=== PATIENT | male | born 1950 | race Caucasian/White ===

== ENCOUNTER 2017-08-27 06:52 | Day surgery (SDC) | payer OTHER ==
[2017-08-23 15:15] VITALS: BMI 30.4
--- NOTE | 2017-08-27 10:20 | OP ---
DATE OF PROCEDURE: 08/27/2017 PROCEDURE PERFORMED: Colonoscopy. PREOPERATIVE DIAGNOSIS: Surveillance for history of colon polyps. The patient had multiple serrated adenomas, multiple serrated adenomas removed from the colon in 07/2013. One of these was a large 2. 2 cm serrated adenoma at the hepatic flexure. Followup exam was recommended for 6 months from that t daysi; however, the patient just now presents for followup. PROCEDURE IN DETAIL: Informed consent was obtained from the patient. He was sedated with total intr avenous anesthesia. The rectal exam was performed and was normal. The preparation quality was poor in the ascending colon. The prep was fair overall, otherwise. There were no significant mucosal les ions identified. Retroflex views in the rectum were unremarkable. IMPRESSION: 1. Fair to poor prep in the colon. 2. Otherwise, normal colonoscopy. The prep was primarily poor in the ascending colon and cecum. It was fair, otherwise. The site of the previous polypectomy with tattoo at the hepatic flexure reveal ed no residual polyp tissue in that area. RECOMMENDATIONS: Repeat colonoscopy in 1 year due to the fair to poor prep in areas of the colon.
[2017-08-27] MEDS ORDERED: PROPOFOL 200 MG/20 ML VIAL ONE (11:13)
== END 2017-08-27 10:31 | disposition home or self-care (01) ==
LOC: SDC 06:52
PROVIDERS: ATTEND Internal Medicine Gastroenterology
PROC: 0DJD8ZZ Inspection of Lower Intestinal Tract, Via Natural or Artificial Opening Endoscopic (ICD-10-PCS; principal; 2017-08-27)
DX: Z12.11 Encounter for screening for malignant neoplasm of colon (principal); E78.5 Hyperlipidemia, unspecified; I71.4 Abdominal aortic aneurysm, without rupture; I10 Essential (primary) hypertension; E11.9 Type 2 diabetes mellitus without complications; J44.9 Chronic obstructive pulmonary disease, unspecified; N40.0 Benign prostatic hyperplasia without lower urinary tract symptoms; Z86.010 Personal history of colon polyps; Z79.82 Long term (current) use of aspirin; Z79.4 Long term (current) use of insulin; Z79.899 Other long term (current) drug therapy
CPT/HCPCS: 36416; J2704

== ENCOUNTER 2018-12-31 01:24 | Inpatient (IN) | payer OTHER ==
[2019-01-01 02:06] VITALS: BMI 32.8
[2019-01-01] MEDS ORDERED: Acetaminophen 325 MG TAB PO PRN (04:38)
[2019-01-01] MEDS ORDERED: Dextrose 5% in Water 1,000 ML IV PRN (04:38)
[2019-01-01] MEDS ORDERED: HumaLOG 300 UNITS/3 ML VIAL SC PRN (04:38)
[2019-01-01] MEDS ORDERED: Ondansetron PF 4 MG/2 ML Vial IVP PRN (04:38)
[2019-01-01] MEDS ORDERED: Acetaminophen 650 MG Suppository PR PRN (04:38)
[2019-01-01] MEDS ORDERED: Dextrose 50% Abboject 50 ML SYRINGE SLOW IVP PRN ×2 (04:38→09:13)
--- NOTE | 2019-01-01 05:31 | HP ---
PRIMARY CARE PHYSICIAN: Rakesh Mcwilliams. CHIEF REASON FOR ADMISSION: CARMELO and hyperkalemia. HISTORY OF PRESENT ILLNESS: Mr. Mcfarland is a 68-year-old gentleman, with a known history of diabetes mellitus, type 2; hyperlipidemia; hypertension; and COPD for which he is on oxygen at home, who was referred to the emergency department and initially seen at [place] [facility] due to abnormal blood results. He was seen for a routine visit by his primary care physician and noted to have an CARMELO and hyperkalemic at 6.9. The patient is asymptomatic and denies feeling unwell. He states he is at his baseline. He does have shortness of breath and has COPD. He continues to smoke a pack and a half a day and uses oxygen at home but only at night. Denies having any chest pain, palpitations, or shortness of breath. No headaches or dizziness. No abdominal pain or cramping. No nausea or vomiting. No lightheadedness or dizziness. He reports having his bowels as normal. Denies any urinary symptoms. All other review of systems are negative. In the emergency department at [place], the patient was treated with calcium gluconate, Novolin, and given an amp of D50 to help manage his potassium. Chest x-ray done had demonstrated concern for pneumonia versus atelectasis. The patient therefore started on Zithromax and Rocephin. He has been afebrile and states he is at baseline without any signs or symptoms of infection. PAST MEDICAL HISTORY: 1. Hypertension. 2. Type 2 diabetes mellitus, on insulin. 3. BPH. 4. Hyperlipidemia. 5. Diabetic neuropathy. 6. Obesity. 7. COPD, on oxygen at home at night. 8. PTSD. PAST SURGICAL HISTORY: 1. Bladder surgery, R/T cancer. 2. Cholecystectomy. 3. Hernia repair. 4. Knee surgery. SOCIAL HISTORY: The patient lives with his family. Denies any alcohol consumption or illicit drug use, but does report smoking heavily for many years, greater than 20. Smokes one and a half packs per day. ALLERGIES: NO KNOWN DRUG ALLERGIES. CURRENT MEDICATIONS: 1. Bisacodyl. 2. Atorvastatin. 3. NovoLog. 4. Gabapentin. 5. Cyclobenzaprine. 6. Amlodipine. 7. Albuterol. 8. Cyanocobalamin. 9. Sertraline. 10. Tamsulosin. PHYSICAL EXAMINATION: GENERAL: The patient appears well developed, well nourished, is in no acute distress. VITAL SIGNS: Temperature 98.7, pulse 72, respirations 20, O2 saturation 92% on room air, and blood pressure 167/74. HEENT: Normocephalic and atraumatic. Pupils are equal, round, reactive to light. Sclerae icterus. Oropharynx is clear. NECK: Supple. LUNGS: Notable for slight expiratory wheezing at the bilateral bases. No crackles. CARDIAC: Regular rate and rhythm. ABDOMEN: Obese, soft, nontender, nondistended. Normoactive bowel sounds present. No guarding or rigidity. No renal angle tenderness. EXTREMITIES: No lower leg swelling or edema. NEUROLOGIC: Alert and oriented x3. SKIN: Without rash or jaundice. LABORATORY DATA: White blood count 9.4, hemoglobin 14, hematocrit 43.9, platelets 243. Sodium 140, potassium 6.2. BUN 62, creatinine 1.93, GFR 35, glucose 158. LFTs unremarkable. Magnesium 2.4, albumin 3.5. Urinalysis notable for protein and trace blood, otherwise unremarkable. IMAGING DATA: Chest x-ray showed right basilar consolidation which could represent either pneumonia or atelectasis. IMPRESSION AND PLAN: Mr. Mcfarland is a pleasant 68-year-old gentleman who presents with abnormal laboratory studies and advised by his primary care physician to come to [facility]. He has been transferred here for further management of the following. 1. Hyperkalemia. The patient treated at [facility] as mentioned above. We will continue to monitor potassium. His magnesium was normal. We will recheck both with morning labs. The patient does report having lower extremity cramping and on occasion over the last few days. No lower leg swelling, edema, redness, or warmth. No calf tenderness. 2. Acute kidney injury. The patient with no recent renal function to compare to; however, in 2013, his GFR was greater than 90. Consult has been placed to Nephrology given significantly reduced GFR of 35 with creatinine of 1.93. The patient appears to have received no additional fluids in the emergency department. We will provide gentle hydration. We will add BNP to his morning labs. 3. Suspected pneumonia. The patient with normal full blood count. We will add lactic acid and procalcitonin to labs. He has been afebrile and has chronic cough at baseline, but denies any purulent sputum. Has not been febrile. He did undergo a chest x-ray at [facility] that showed possible atelectasis versus pneumonia involving the right lung base. He was started on IV antibiotics which we will continue. 4. Hypertension. Resume home medications and monitor blood pressure. 5. Chronic obstructive pulmonary disease. We will continue DuoNebs. Stable at present. Oxygen in place, which he usually uses at home at night. 6. Diabetes mellitus. Initiate insulin sliding scale. Medications still need to be verified. Monitor blood glucose. 7. Gastrointestinal prophylaxis. 8. Deep venous thrombosis prophylaxis with mechanical Sequential compression devices. 9. Code status is full. His surrogate decision maker is his , Latanya Mcfarland. The patient's case was discussed with Dr. Frias, who agrees upon the care as described above. Job ID: [id number]
[2019-01-01 05:34] LABS: #Eosinphils 0.5 thou/uL (0.0-0.7); #Lymphocytes 1.4 thou/uL (1.20-3.40); #Monocytes 0.8 thou/uL (0.11-0.59); #Neutrophils 8.3 thou/uL (1.40-6.50); %Basophils 0.4 % (0.0-1.0); %Eosinophils 4.2 % (0.0-10.0); %Lymphocytes 12.8 % (21.0-51.0); %Monocytes 7.1 % (0.0-10.0); %Neutrophils 75.6 % (42.0-75.0); Mean Corpuscular HGB CONC 33.3 g/dL (32.0-36.0); Mean Corpuscular Hemoglobin 30.4 pg (27.0-31.0); Mean Corpuscular Volume 91.4 fL (78.0-98.0); Platelet Count 266 thou/uL (130-400); RBC Distribution Width 15.4 % (11.5-14.5); Red Blood Cell (RBC) Count 4.94 mill/uL (4.70-6.10)
[2019-01-01 05:59] LABS: Anion Gap 13 mmol/L (10-20); BUN (Urea Nitrogen) 54 mg/dL (8.4-25.7); Calc. Creatinine Clearance 70 mL/min (70-130); Calcium 8.8 mg/dL (7.8-10.44); Carbon Dioxide 22 mmol/L (23-31); Chloride 108 mmol/L (98-107); Estimated GFR-MDRD 39; Glucose 181 mg/dL (80-115); Magnesium 2.5 mg/dL (1.6-2.6); Potassium 6.5 mmol/L (3.5-5.1); Sodium 136 mmol/L (136-145)
[2019-01-01] MEDS: HumaLOG 300 UNITS/3 ML VIAL SC PRN ×2 (08:44→18:07)
[2019-01-01] MEDS ORDERED: Famotidine/PF 20 mg/2ml Vial SLOW IVP SCH (09:00)
[2019-01-01] MEDS ORDERED: Insulin Regular 300 UNITS/3 ML VIAL IVP SCH (09:15)
[2019-01-01 10:06] LABS: Creatinine, Urine 54.03 mg/dL (63-166)
--- NOTE | 2019-01-01 11:05 | CON ---
DATE OF CONSULTATION: CONSULTING PHYSICIAN: Simon Hunter MD REQUESTING PHYSICIAN: Hospitalist Service. REASON FOR CONSULTATION: Acute kidney injury as well as hyperkalemia. IMPRESSION: 1. Acute kidney injury query cause. 2. Hyperkalemia due to reduced GFR in the process of angiotensin-converting enzyme inhibition. PLAN: 1. Hold lisinopril for now. 2. Gentle hydration. 3. Monitor the renal function closely and electrolytes especially the hyperkalemia. 4. Further management will be dependent on the clinical course. 5. If the potassium does not respond to holding the lisinopril and gentle hydration, re-evaluate the urine PH HISTORY OF PRESENT ILLNESS: A 68-year-old gentleman, who was transferred from [place] with abnormal labs in the context of hyperkalemia and evidence of acute kidney injury. Patient was sent initially to the [place] ER due to abnormal labs. Hyperkalemia. PAST MEDICAL HISTORY: Hypertension, type 2 diabetes, BPH, dyslipidemia, obesity , COPD, posttraumatic stress disorder. MEDICATIONS: Reviewed and as documented in the [employer]. SOCIAL HISTORY: Significant for tobacco abuse. ALLERGIES: NO KNOWN DRUG ALLERGIES. REVIEW OF SYSTEMS: As documented in the body of the history. All the other systems were reviewed and found not to be significantly related to the presenting illness. PHYSICAL EXAMINATION: GENERAL: The patient was noted with the following vital signs. VITAL SIGNS: Afebrile, temperature 97, pulse 72, respiratory rate 20, O2 saturation 90%, blood pressure of 167/74. HEENT: Unremarkable. CARDIOVASCULAR: First and second heard sounds were heard. RESPIRATORY SYSTEM: Clear to auscultation DIGESTIVE SYSTEM: Revealed a benign abdomen with positive bowel sounds. EXTREMITIES: No peripheral edema. SKIN: No new gross rash. LYMPHATICS: No peripheral lymphadenopathy. SUMMARY: A 68-year-old with diabetes mellitus type 2, presented to the [place] ER with abnormal labs in the context of hyperkalemia with potassium above 6 and evidence of acute kidney injury. Thank you for this consultation. We will follow with you. Job ID: [id number] MTDD
[2019-01-01 13:49] LABS: Anion Gap 14 mmol/L (10-20); BUN (Urea Nitrogen) 52 mg/dL (8.4-25.7); Calc. Creatinine Clearance 69 mL/min (70-130); Calcium 8.9 mg/dL (7.8-10.44); Carbon Dioxide 23 mmol/L (23-31); Chloride 107 mmol/L (98-107); Estimated GFR-MDRD 39; Glucose 274 mg/dL (80-115); Potassium 5.4 mmol/L (3.5-5.1); Sodium 139 mmol/L (136-145)
--- NOTE | 2019-01-01 14:40 | PDOC.HOSPP ---
- Subjective Encounter Date: 01/01/19 Encounter Time: 10:30 Subjective: pt up in bed no complains - Objective Vital Signs & Weight: Vital Signs (12 hours) Temp Pulse Resp BP Pulse Ox 01/01/19 13:01 18 97 01/01/19 07:50 97.8 F 74 18 169/78 H 98 01/01/19 06:47 93 L 01/01/19 06:43 61 16 93 L 01/01/19 04:14 98.5 F 82 16 177/75 H 92 L Weight Weight 269 lb 8 oz I&O: 12/31/18 01/01/19 01/02/19 06:59 06:59 06:59 Intake Total 400 Balance 400 Result Diagrams: 01/01/19 04:57 01/01/19 13:17 Additional Labs: Accuchecks 01/01/19 10:35 POC Glucose 272 H Hospitalist ROS - Review of Systems Respiratory: denies: cough, dry, shortness of breath, hemoptysis, SOB with excertion, pleuritic pain, sputum, wheezing, other Cardiovascular: denies: chest pain, palpitations, orthopnea, paroxysmal noc. dyspnea, edema, light headedness, other Gastrointestinal: denies: nausea, vomiting, abdominal pain, diarrhea, constipation, melena, hematochezia, other - Medication Medications: Active Medications Generic Name Dose Route Start Last Admin Trade Name Freq PRN Reason Stop Dose Admin Albuterol/Ipratropium 3 ml 01/01/19 07:00 01/01/19 13:01 Duoneb NEB 3 ml [id number] ABDIAS Administration Famotidine 20 mg 01/01/19 09:00 01/01/19 08:45 Pepcid SLOW IVP 20 mg Q12HR ABDIAS Administration Insulin Human Lispro 0 units 01/01/19 04:38 01/01/19 08:44 Humalog SC 3 unit .MILD SLIDING SCALE PRN Administration Mild Correctional Scale Sodium Chloride 10 ml 01/01/19 04:38 01/01/19 08:46 Flush - Normal Saline IVF 10 ml Q12HR PRN Administration Saline Flush - Exam Neck: negative: supple, symmetric, no JVD, no thyromegaly, no lymphadenopathy, no carotid bruit, JVD Heart: negative: RRR, no murmur, no gallops, no rubs, normal peripheral pulses, irregular, diminshed peripheral pulses, murmur present, II/IV, III/IV Respiratory: negative: CTAB, no wheezes, no rales, no ronchi, normal chest expansion, no tachypnea, normal percussion, rales, rhonchi, tachypneic, wheezes Gastrointestinal: negative: soft, non-tender, non-distended, normal bowel sounds , no palpable masses, no hepatomegaly, no splenomegaly, no bruit, no guarding, no rigidity, tender to palpation, distended, diminished bowl sounds, voluntary guarding Hosp A/P (1) Acute hyperkalemia Code(s): E87.5 - HYPERKALEMIA Status: Acute (2) CARMELO (acute kidney injury) Code(s): N17.9 - ACUTE KIDNEY FAILURE, UNSPECIFIED Status: Acute (3) HTN (hypertension) Code(s): I10 - ESSENTIAL (PRIMARY) HYPERTENSION Status: Acute (4) Diabetes Code(s): E11.9 - TYPE 2 DIABETES MELLITUS WITHOUT COMPLICATIONS Status: Acute - Plan pt has been taking NASIDS and has been eating food with high potassium. will continue to monitor. nephrology on board.
[2019-01-01] MEDS ORDERED: Amlodipine 5 MG TAB PO SCH (16:45)
--- NOTE | 2019-01-01 17:28 | PRG ---
DATE OF SERVICE: 01/01/2019 SUBJECTIVE: The patient is seen and examined with no new complaints. Noted with the following vital signs. OBJECTIVE: VITAL SIGNS: Afebrile, temperature 97.8, pulse 74, respiratory rate of 18, O2 saturation 98%, and blood pressure 177/79. HEENT: Unremarkable. CARDIOVASCULAR SYSTEM: First and second heart sounds were heard. RESPIRATORY SYSTEM: Clear to auscultation. DIGESTIVE SYSTEM: Revealed a benign abdomen with positive bowel sounds. EXTREMITIES: No peripheral edema. SKIN: No new gross rash. LYMPHATICS: No peripheral lymphadenopathy. LABORATORY INVESTIGATION: Showed a potassium of 6.5, creatinine 1.74, BUN of 54. IMPRESSION: 1. Hyperkalemia out of proportion with the degree of renal dysfunction, likely in the context of either increased potassium intake or poor potassium regulation by the kidney. 2. Acute kidney injury, possibly related to whatever is causing the hyperkalemia. PLAN: 1. The patient has been counseled on the need to stay away from high-protein diet as well as nonsteroidal anti-inflammatory drugs. 2. Renally dose all medications. 3. Administer Kayexalate. 4. Insulin and dextrose. 5. Re-evaluate urine chemistry later today. Job ID: [id number]
[2019-01-01] MEDS: Famotidine 20 MG TAB PO SCH (20:28)
[2019-01-01] MEDS ORDERED: Prevnar 13-Val Conj/PF 0.5 ML SYRINGE IM ONE (21:00)
[2019-01-01] MEDS ORDERED: FLU VACC TS2019-20(65YR UP)/PF 180 MCG/0.5 ML SYRINGE IM ONE (21:00)
[2019-01-02 07:00] LABS: #Eosinphils 0.4 thou/uL (0.0-0.7); #Lymphocytes 0.6 thou/uL (1.20-3.40); #Monocytes 0.8 thou/uL (0.11-0.59); #Neutrophils 10.3 thou/uL (1.40-6.50); %Basophils 0.2 % (0.0-1.0); %Eosinophils 3.2 % (0.0-10.0); %Lymphocytes 5.3 % (21.0-51.0); %Monocytes 6.2 % (0.0-10.0); %Neutrophils 85.1 % (42.0-75.0); Hemoglobin 15.2 g/dL (14.0-18.0); Mean Corpuscular HGB CONC 32.8 g/dL (32.0-36.0); Mean Corpuscular Hemoglobin 30.3 pg (27.0-31.0); Mean Corpuscular Volume 92.5 fL (78.0-98.0); Mean Platelet Volume 6.8 fL (7.4-10.4); Platelet Count 253 thou/uL (130-400); RBC Distribution Width 15.4 % (11.5-14.5); Red Blood Cell (RBC) Count 5.03 mill/uL (4.70-6.10); White Blood Cell (WBC) Count 12.1 thou/uL (4.8-10.8)
[2019-01-02 07:19] LABS: Anion Gap 13 mmol/L (10-20); BUN (Urea Nitrogen) 40 mg/dL (8.4-25.7); Calc. Creatinine Clearance 86 mL/min (70-130); Calcium 8.8 mg/dL (7.8-10.44); Carbon Dioxide 23 mmol/L (23-31); Chloride 107 mmol/L (98-107); Estimated GFR-MDRD 50; Glucose 206 mg/dL (80-115); Potassium 4.9 mmol/L (3.5-5.1); Sodium 138 mmol/L (136-145)
[2019-01-02] MEDS ORDERED: Sodium Chloride 0.9% 500 ML IV SCH (07:45)
[2019-01-02 08:55] VITALS: BP 161/78; TEMP 98.5
[2019-01-02] MEDS ORDERED: Amlodipine 5 MG TAB PO SCH (09:00)
[2019-01-02] MEDS: Sodium Chloride 0.9% 500 ML IV SCH ×2 (09:01→09:07)
[2019-01-02] MEDS: Famotidine 20 MG TAB PO SCH (09:02)
--- NOTE | 2019-01-03 01:55 | DIS ---
DATE OF ADMISSION: 01/01/2019 DATE OF DISCHARGE: 01/02/2019 DISCHARGE DIAGNOSES: 1. Hyperkalemia. 2. Acute kidney injury. 3. Diabetes. 4. Hypertension. HOSPITAL COURSE: The patient is a 68-year-old male, who initially presented to the hospital for abnormal lab values. He was found to have a potassium of greater than 6 and a creatinine of 1.74. The patient was seen by Nephrology and he received medications for his hyperkalemia. The patient did not require any dialysis. His hyperkalemia improved. On discharge, it was 4.9. His creatinine improved to 1.42. The patient was taking ibuprofen and Advil. I have recommended against taking any of those. I have also discontinued his metformin. I have given a lab slip to check his blood work on Saturday and follow up with his primary care on Saturday. He will also follow up with Nephrology in a month. His home medications are unchanged except for metformin, which I have discontinued. All the remaining will be the same. PHYSICAL EXAMINATION: VITAL SIGNS: His vital signs are stable, temperature 98.5, pulse 78, respirations 16, oxygen saturation 94% on room air, and blood pressure 161/78. GENERAL: He is awake, alert, and oriented x3. Does not appear in distress. CV: S1 and S2 present. No murmurs, rubs or gallops. Again, he will be discharged home. He will follow up with his primary and also with Nephrology, and I have only discontinued his metformin for now. Once creatinine is back to his baseline, he may continue the metformin after he follows up with PCP. Also, I have advised him against eating foods that causes hyperkalemia and he is aware of that and so is his . Job ID: [id number]
--- NOTE | 2019-01-05 06:20 | PQF ---
ALEXANDRE SIN KARISHMA [id number] CLINICAL DOCUMENTATION CLARIFICATION FORM: POST DISCHARGE Addendum to original discharge summary date: ____ Late entry note date: __ DATE: 01-05-2019 ATTN:Yola Rg Please exercise your independent, professional judgment in responding to the clarification form. Clinical indicators are provided on the bottom of this form for your review Please check appropriate box(s) to clarify if the following diagnosis has been ruled in or ruled out: Penumonia [ ] Ruled in diagnosisSAP Education Program Associate Crystal Reports Winform ViewerALEXANDRE SIN KARISHMA [id number] [facility]-252 [id number] CLINICAL DOCUMENTATION CLARIFICATION FORM: POST DISCHARGE Addendum to original discharge summary date: ____ Late entry note date: __ DATE: 01-05-2019 ATTN:Yola Rg Please exercise your independent, professional judgment in responding to the clarification form. Clinical indicators are provided on the bottom of this form for your review Please check appropriate box(s) to clarify if the following diagnosis has been ruled in or ruled out: Penumonia [ ] Ruled in diagnosis [ ] Continue to treat [ ] Resolved [ ] Ruled out diagnosis [ ] Cannot rule out diagnosis [ ] Other diagnosis please specify: [ ] Unable to determine In addition, please specify: Present on Admission (POA): [ ] Yes [ ] No [ ] Unable to determine For continuity of documentation, please document condition throughout progress notes and discharge summary. Thank You. CLINICAL INDICATORS: HP 01/01 "Suspected pneumonia" HP 01/01 "CC: CARMELO and hyperkalemia" HP 01/01 "noted to have CARMELO and hyperkalemic at 6.9" HP 01/01 "He does have SOB and COPD" HP 01/01 "Lungs:notable for slight expiratory wheezing" HP 01/01 "has chronic cough" HP 01/01 "Chest xray at [place] [facility] that showed possible atelectasis versus pneumonia" RISK FACTORS: HP 01/01-68 years old male HP 01/01-COPD HP 01/01-Smoker HP 01/01-Oxygen dependent HP 01/01-Obesity HP 01/01-DM TREATMENTS: HP 01/01- IV antibiotic JUN 08 -IVF JUN 08 - Duoneb 3ml NEb (This form is maintained as a part of the permanent medical record) 2014 [employer]. All Rights Reserved [email or web address] [not [email or web address]] [ ] Continue to treat [ ] Resolved [ ] Ruled out diagnosis [ ] Cannot rule out diagnosis [ ] Other diagnosis please specify: [ ] Unable to determine In addition, please specify: Present on Admission (POA): [ ] Yes [ ] No [ ] Unable to determine For continuity of documentation, please document condition throughout progress notes and discharge summary. Thank You. CLINICAL INDICATORS: HP 01/01 "Suspected pneumonia" HP 01/01 "CC: CARMELO and hyperkalemia" HP 01/01 "noted to have CARMELO and hyperkalemic at 6.9" HP 01/01 "He does have SOB and COPD" HP 01/01 "Lungs:notable for slight expiratory wheezing" HP 01/01 "has chronic cough" HP 01/01 "Chest xray at [place] [facility] that showed possible atelectasis versus pneumonia" RISK FACTORS: HP 01/01-68 years old male HP 01/01-COPD HP 01/01-Smoker HP 01/01-Oxygen dependent HP 01/01-Obesity MTDD
== END 2019-01-02 11:15 | disposition home or self-care (01) | DRG 641 ==
LOC: PREOBSVTOIN 01:24 → 2NO 01-01 01:08
PROVIDERS: ADMIT Hospitalist; ATTEND Hospitalist
PROC: 3E0234Z Introduction of Serum, Toxoid and Vaccine into Muscle, Percutaneous Approach (ICD-10-PCS; principal; 2019-01-01)
DX: E87.5 Hyperkalemia (principal); N17.9 Acute kidney failure, unspecified; Z79.899 Other long term (current) drug therapy; Z23 Encounter for immunization; E78.5 Hyperlipidemia, unspecified; I10 Essential (primary) hypertension; J44.9 Chronic obstructive pulmonary disease, unspecified; F17.200 Nicotine dependence, unspecified, uncomplicated; N40.0 Benign prostatic hyperplasia without lower urinary tract symptoms; E11.40 Type 2 diabetes mellitus with diabetic neuropathy, unspecified; E66.9 Obesity, unspecified; Z68.31 Body mass index [BMI] 31.0-31.9, adult; F43.10 Post-traumatic stress disorder, unspecified; Z99.81 Dependence on supplemental oxygen; Z90.49 Acquired absence of other specified parts of digestive tract; Z79.4 Long term (current) use of insulin; Z79.51 Long term (current) use of inhaled steroids
CPT/HCPCS: 36415; 36416; 80048; 82570; 83735; 83880; 84156; 85025; 90471; 90662; 90670; 94640; G0008; G0009; J1815; J7620; S0028

== ENCOUNTER 2019-04-03 19:24 | Inpatient (IN) | payer MEDICARE, OTHER ==
[~2019-04-03 19:24] MED LIST: EPINEPHrine 1 MG/10 ML Abboject SYRINGE ONE; Iopamidol-370 76% 500 ML 1 ML ONE
[2019-04-03] MEDS ORDERED: methylPREDNISolone Sod Succ/PF 125 MG/2 ML VIAL ONE (19:40)
[2019-04-03] MEDS ORDERED: Norepinephrine 8 MG/0.9% NS 250 ML ONE (19:44)
[2019-04-03 19:57] LABS: #Basophils 0.1 thou/uL (0.0-0.2); #Eosinphils 0.3 thou/uL (0.0-0.7); #Lymphocytes 2.6 thou/uL (1.20-3.40); #Monocytes 0.4 thou/uL (0.11-0.59); #Neutrophils 11.6 thou/uL (1.40-6.50); %Basophils 0.4 % (0.0-1.0); %Eosinophils 1.7 % (0.0-10.0); %Lymphocytes 17.6 % (21.0-51.0); %Monocytes 2.3 % (0.0-10.0); %Neutrophils 78.1 % (42.0-75.0); Hemoglobin 9.4 g/dL (14.0-18.0); Mean Corpuscular HGB CONC 30.5 g/dL (32.0-36.0); Mean Corpuscular Volume 88.6 fL (78.0-98.0); Mean Platelet Volume 7.7 fL (7.4-10.4); Platelet Count 362 thou/uL (130-400); RBC Distribution Width 17.5 % (11.5-14.5); Red Blood Cell (RBC) Count 3.48 mill/uL (4.70-6.10); White Blood Cell (WBC) Count 14.8 thou/uL (4.8-10.8)
[2019-04-03] MEDS ORDERED: Vasopressin 40 UNIT, Admixture Fee 1 EACH in Sodium Chloride 0.9% 100 ML IV SCH (20:00)
[2019-04-03 20:03] LABS: Actual Bicarbonate (HCO3a) 22.3 mEq/L (22-28); Analyzer IN Cardio ER; Base Excess (BEa) -9.6 mEq/L (-2.0 to +3.0); Calcium, Ionized 1.08 mmol/L (1.12-1.30); Carboxyhemoglobin (COHb) 2.7 gm% (0.0-3.0); Hemoglobin (Hb) 9.8 g/dL (14.0-18.0); O2 Tension (PaO2) 73.9 mmHg (> 80.0); Potassium - ABG Lab 5.92 mmol/L (3.70-5.30)
[2019-04-03 20:07] LABS: Bicarbonate (HCO3v) 20.9 mmol/L (22.0-28.0); CO2 Tension (PvCO2) 67.6 mmHg (40.0-50.0); Calcium, Ionized 1.04 mmol/L (See Comments:); Chloride 109 mmol/L (98-107); Glucose 264 mg/dL (80-115); Hemoglobin - Calc 9.5 g/dL (14.0-18.0); Lactate 7.27 mmol/L (0.50-2.20); Sodium 143 mmol/L (138-145); T. Carbon Dioxide 22.9 mmol/L (22.0-28.0); vO2 Saturation-calc 94.9 % (60.0-85.0)
[2019-04-03 20:14] LABS: INR-International Normal Ratio 1.5; PTT 30.9 SEC (22.9-36.1); Prothrombin Time 18.4 SEC (12.0-14.7)
[2019-04-03] MEDS ORDERED: DOPamine 400 MG/D5W 250 ML 250 ML ONE (20:15)
[2019-04-03] MEDS ORDERED: Piperacillin/Tazobactam 4.5 GM VIAL ONE (20:15)
--- NOTE | 2019-04-03 20:19 | RAD ---
PORTABLE SUPINE CHEST: 04/03/19 HISTORY: CPR. COMPARISON: Earlier exam the same day. Tip of the endotracheal tube is difficult to visualize on this exam. It appears to be at approximatel y the level of the thoracic inlet. There is an NG tube present. Distal end of this tube cannot be vis ualized on this exam. The pleural and parenchymal lung changes appear stable. IMPRESSION: There is an endotracheal tube. The tip of the tube appears to be near the thoracic inlet and should b e advanced. An NG tube is seen but I only see the tube to the level of the aortic arch. POS: [facility]
[2019-04-03] MEDS ORDERED: fentaNYL Citrate/PF 2,000 MCG in Sodium Chloride 0.9% 60 ML IV SCH (20:23)
[2019-04-03] MEDS ORDERED: Magnesium 2 GM/50 ML BAG (IN WATER) ONE (20:28)
[2019-04-03] MEDS ORDERED: Sodium Bicarb 50 MEQ/50 ML VIAL ONE (20:28)
[2019-04-03] MEDS ORDERED: Pantoprazole 40 MG VIAL ONE (20:28)
[2019-04-03 20:30] LABS: ALT (SGPT) 192 U/L (8-55); AST (SGOT) 275 U/L (5-34); Albumin 1.8 g/dL (3.4-4.8); Alkaline Phosphatase 269 U/L (40-110); Anion Gap 18 mmol/L (10-20); BUN (Urea Nitrogen) 38 mg/dL (8.4-25.7); Bilirubin, Total 0.3 mg/dL (0.2-1.2); CK (CPK) 316 U/L (30-200); Calc. Creatinine Clearance 0 mL/min (70-130); Carbon Dioxide 20 mmol/L (23-31); Chloride 110 mmol/L (98-107); Estimated GFR-MDRD 33; Globulin 3.3 g/dL (2.4-3.5); Glucose 270 mg/dL (80-115); Lipase 22 U/L (8-78); Magnesium 1.9 mg/dL (1.6-2.6); Potassium 6.5 mmol/L (3.5-5.1); Protein, Total 5.1 g/dL (5.8-8.1); Sodium 141 mmol/L (136-145)
[2019-04-03] MEDS ORDERED: STERILE WATER IV SCH (20:30)
[2019-04-03] MEDS ORDERED: SODIUM BICARBONATE IV SCH (20:30)
[2019-04-03 20:42] LABS: Bacteria/HPF None Seen HPF (None Seen); Bilirubin Negative (Negative); Blood, Urine 1+ (Negative); Clarity Turbid (Clear); Glucose, Urine (Dipstick) 100 mg/dL (Negative); Leukocyte Negative Leu/uL (Negative); Nitrite Negative (Negative); Protein, Urine (Dipstick) 300 mg/dL (Neg-Trace); RBC/HPF 0-3 HPF (0-3); Squamous Epithelial 0-3 HPF (0-3); Urobilinogen Normal mg/dL (Less than 2)
[2019-04-03] MEDS ORDERED: Pantoprazole 80 MG, Admixture Fee 1 EACH in Sodium Chloride 0.9% 100 ML IVPB SCH (20:45)
--- NOTE | 2019-04-03 21:26 | CT ---
CT Brain WO Con HISTORY: Altered mental status. COMPARISON: None. FINDINGS: The ventricular and cisternal system is within normal limits. There are no signs of intrace rebral hemorrhage or extra-axial fluid collections. The mastoid air cells are clear. There is some ethmoid air cell mucosal change. IMPRESSION: No acute intracranial abnormalities.
--- NOTE | 2019-04-03 21:47 | CT ---
CT angiogram of chest performed with intravenous contrast enhancement with 3-D reconstructions HISTORY: Cardiac arrest. Difficulty breathing. COMPARISON: None. FINDINGS: There is respiratory artifact and artifact related to arm position which degrades detail pa rticularly in the lower lobe regions. There is a moderate right-sided pleural effusion which appears slightly loculated. There is some high attenuation density within it given the history of car diac arrest possibly this represents blood is not excluded an infectious process is also not excluded. The right lower lobe is essentially completely collapsed. There are atelectatic changes wit hin the left base. There are air bronchograms within the apical posterior segment of the left upper lobe, this could be on the basis of atelectasis or infiltrate, possibly aspiration. The thoracic aorta is normal in caliber. There is fair pulmonary artery opacification I see no centra l pulmonary embolus but peripheral emboli cannot be excluded particularly in the lower lobe regions. There are some questionable defects within some of the left lower lobe pulmonary vessels and I cannot definitely exclude these as pulmonary emboli. Motion artifact significantly degrades detail. The visualized liver parenchyma shows no focal findings. The spleen is within normal limits of size. IMPRESSION: 1. Moderate somewhat loculated appearing right effusion with higher attenuation density within the ef fusion this could be on the basis of an infectious process. Given the history of cardiac arrest and presumed CPR this could also represent blood products. I see no rib fractures. The right lower lobe i s completely collapsed. There are pronounced atelectatic changes within the left lower lobe as well as air bronchograms within the apical superior segment the left upper lobe, this could be atelectasis versus infiltrate. 2. Artifact significantly degrades detail. There are no central pulmonary emboli present. I cannot de finitely exclude the possibly of some left lower lobe subsegmental emboli. 3. Endotracheal tube at the level of the vocal cords and should be advanced. NG tube below the hemidi aphragm.
--- NOTE | 2019-04-03 21:59 | CT ---
CT Abdomen Pelvis W Con HISTORY: Cardiac arrest. Abdomen pain. COMPARISON: CT examination of 03/18/2009 FINDINGS: A large right-sided pleural effusion is noted high attenuation density within the pleural f luid could represent blood given patient's history. Exam quality is limited due to body habitus and arm position. The visualized portion of the liver pita ears unremarkable. Due to patient's is some of the anterior portion of the liver is out of the [id number]. The spleen and pancreas regions appear unremarkable. The gallbladder has been removed. Right adrenal gland is normal. A left adrenal lesion is stable in size as compared to the previous CT study. It measures 2.5 cm.. Right and left kidneys are normal in size. Hypodensities involving the left kidney appear to represent small cyst. There is an exophytic lesion involving the right kidney i t measures 3.[address] Hounsfield unit numbers are 43 this could represent a hemorrhagic cyst but a solid lesion would be a consideration. In reviewing a 03/18/2009 study this was present at that prior exam but only measured 1.7 cm given its slow increase in size a hemorrhagic cyst would be most favored but further workup would be needed. There is some minimal fluid tracking in the right paracol ic gutter minimal fluid seen within the pelvis. A Breen catheter is in place. Arthritic changes of the spine and hips are noted. IMPRESSION: 1. High attenuation large right pleural effusion this would suggest the possibility of blood. 2. Stable left adrenal lesion. 3. High attenuation exophytic lesion involving the right kidney as described above, I cannot exclude this as a solid mass although its slow growth since the 2008 study would favor a hemorrhagic cyst. Further workup with CT using renal mass protocol would be recommended. 4. Small amount of fluid tracking the right paracolic gutter of uncertain significance, is possibly j ust related to the right effusion I do not see any definite signs of a liver injury although the liver is not entirely included due to patient's body habitus.
[2019-04-03 22:00] LABS: Anion Gap 16 mmol/L (10-20); BUN (Urea Nitrogen) 40 mg/dL (8.4-25.7); Calc. Creatinine Clearance 0 mL/min (70-130); Calcium 6.9 mg/dL (7.8-10.44); Carbon Dioxide 23 mmol/L (23-31); Chloride 109 mmol/L (98-107); Estimated GFR-MDRD 33; Glucose 246 mg/dL (80-115); Potassium 6.3 mmol/L (3.5-5.1); Sodium 142 mmol/L (136-145)
[2019-04-03] MEDS ORDERED: Insulin Regular 300 UNITS/3 ML VIAL ONE (22:29)
[2019-04-03] MEDS ORDERED: Calcium Chloride 1 GM/10 ML Abboject SYRINGE ONE (22:29)
[2019-04-03] MEDS ORDERED: Dextrose 50% Abboject 50 ML SYRINGE ONE (22:29)
[2019-04-03 22:37] LABS: Hemoglobin 8.9 g/dL (14.0-18.0); Mean Corpuscular Hemoglobin 26.9 pg (27.0-31.0); Mean Corpuscular Volume 86.9 fL (78.0-98.0); RBC Distribution Width 17.2 % (11.5-14.5)
[2019-04-03 22:53] LABS: Lactic Acid 5.2 mmol/L (0.5-2.2)
[2019-04-03 22:55] LABS: Band 30 % (5-11); Lymphocytes 4 % (21-51); MDiff Complete? YES; Mean Platelet Volume 7.2 fL (7.4-10.4); Monocytes 3 % (0-10); Neutrophil 63 % (42-75); Platelet Count 370 thou/uL (130-400); Red Blood Cell (RBC) Count 3.32 mill/uL (4.70-6.10); White Blood Cell (WBC) Count 32.8 thou/uL (4.8-10.8)
[2019-04-03 22:57] LABS: Troponin I 0.368 ng/mL (< 0.028)
[2019-04-03] MEDS ORDERED: CCU Electrolyte Replacement 1 EACH IVPB ONE (23:03)
[2019-04-03] MEDS ORDERED: Acetaminophen 650 MG Suppository PR PRN (23:05)
[2019-04-03] MEDS ORDERED: HumaLOG 300 UNITS/3 ML VIAL SC PRN (23:06)
[2019-04-03] MEDS ORDERED: Dextrose 5% in Water 1,000 ML IV PRN (23:06)
[2019-04-03] MEDS ORDERED: Dextrose 50% Abboject 50 ML SYRINGE SLOW IVP PRN (23:06)
[2019-04-03] MEDS ORDERED: Potassium Chloride 40 MEQ in Sodium Chloride 0.9% 250 ML 250 ML IVPB PRN (23:14)
[2019-04-03] MEDS ORDERED: PHOS-NAK 1 PKT PACK PO PRN ×2 (23:14)
[2019-04-03] MEDS ORDERED: Potassium Chloride 20 MEQ TAB PO PRN (23:14)
[2019-04-03] MEDS ORDERED: Potassium Phosphate 15 MMOL in Sodium Chloride 0.9% 250 ML 250 ML IV PRN (23:14)
[2019-04-03] MEDS ORDERED: Potassium Phosphate 12 MMOL in Sodium Chloride 0.9% 250 ML 250 ML IV PRN (23:14)
[2019-04-03] MEDS ORDERED: Potassium Phosphate 9 MMOL in Sodium Chloride 0.9% 100 ML IVPB PRN (23:14)
[2019-04-03] MEDS ORDERED: Magnesium Oxide 400 MG TAB PO PRN ×2 (23:14)
[2019-04-03] MEDS ORDERED: Potassium Chloride 40 MEQ in Premix Bag 1 BAG IVPB PRN (23:14)
[2019-04-03] MEDS ORDERED: CCU ELECTROLYTE REPLACEMENT PROTOCOL FS PRN (23:14)
[2019-04-03] MEDS ORDERED: Magnesium 2 GM/50 ML 2 GM in Premix Bag 1 BAG IVPB PRN (23:14)
[2019-04-04] MEDS: Ipratropium Bromide 2.5 ml Neb NEB SCH ×2 (00:12→07:20)
[2019-04-04] MEDS: EPINEPHrine 1 MG, Admixture Fee 1 EACH in Dextrose 5% in Water 250 ML IVPB SCH ×2 (00:17→01:32)
[2019-04-04 00:31] LABS: Anion Gap 15 mmol/L (10-20); BUN (Urea Nitrogen) 43 mg/dL (8.4-25.7); Calc. Creatinine Clearance 0 mL/min (70-130); Calcium 7.2 mg/dL (7.8-10.44); Carbon Dioxide 24 mmol/L (23-31); Chloride 109 mmol/L (98-107); Estimated GFR-MDRD 31; Glucose 289 mg/dL (80-115); Potassium 4.6 mmol/L (3.5-5.1); Sodium 143 mmol/L (136-145)
[2019-04-04 00:50] VITALS: BMI 38.3
[2019-04-04] MEDS ORDERED: Rocuronium Bromide 10 MG/ML (10ML VIAL) ONE (00:50)
[2019-04-04 00:56] VITALS: TEMP 95.5
[2019-04-04] MEDS ORDERED: Ipratropium Bromide 2.5 ml Neb NEB SCH (01:00)
[2019-04-04 01:07] LABS: Phosphorus 6.4 mg/dL (2.3-4.7)
--- NOTE | 2019-04-04 01:09 | HP ---
CHIEF COMPLAINT: Cardiac arrest. HISTORY OF PRESENT ILLNESS: The patient is a 69-year-old male with a history of COPD, on oxygen, continues to smoke, hypertension, diabetes, also has had multiple collapsed lungs in the past, who presents to the hospital for a cardiac arrest. I did happen to call the patient's , her name is Latanya Mcfarland, who stated that the patient today had 1-1/2 L of thoracentesis done at the [place] and while he was driving back home, felt very short of breath. The patient did have oxygen on while he was driving. According to the patient's , she stated that he has had multiple collapsed lungs in the past and felt that the symptoms were similar. At this time, the did call the EMS and the patient at that time continued to converse with the patient's . However, while he was being transferred into the EMS truck, the patient's eyes kind of rolled back and at this time, ACLS protocol was initiated. I was told by the ER physician that the patient underwent CPR, he received 11 rounds of epi and this was a PEA arrest. The patient also had a VFib arrest at this time once he was shocked. The CPR continued at [facility] and that is when he had return of spontaneous circulation. The patient also was given bicarb and he was put on 2 to 3 pressors and was transferred to our hospital for further evaluation. The patient's states that he has been complaining of some lower extremity swelling and swelling in his stomach and has been on diuretics for that. She denied that fact the patient was recently ill or had any chest pain or cough or fevers. PAST MEDICAL HISTORY: 1. He has a history as I mentioned of COPD, he is on oxygen. He continues to smoke. 2. He does have a history of bladder cancer. 3. He is also a type 2 diabetic. 4. Hyperlipidemia. 5. Obesity. 6. Hypercholesterolemia. 7. BPH. 8. Hypertension. PAST SURGICAL HISTORY: He has had a bladder surgery. He has had cholecystectomy. He has had hernia repair. He has had orthopedic surgery of the knee. FAMILY HISTORY: Unable to obtain. REVIEW OF SYSTEMS: Unable to obtain. The patient is currently intubated. MEDICATIONS: From his previous hospitalizations are as of the followin. Atorvastatin 40 mg daily. 2. Gabapentin. 3. Amlodipine. 4. Albuterol. 5. Sertraline. 6. Tamsulosin. 7. Vitamin B12. 8. Insulin. ALLERGIES: NO KNOWN DRUG ALLERGIES. PHYSICAL EXAMINATION: VITAL SIGNS: He is currently intubated. He is on fentanyl. His temperature is 95.2, sats of 96% on the ventilator, respirations are 18, pulse of 85, blood pressure 113/53. GENERAL: Again, he is intubated. HEENT: His pupils are not really reactive to light. CV: S1 and S2 present. No murmurs heard. Regular. LUNGS: Mild rhonchi heard. Diminished breath sounds noted to the right lower lung. ABDOMEN: Significantly obese. Bowel sounds are very hypoactive. EXTREMITIES: He does have some lower extremity 1+ pitting edema. Pedal pulses are present. SKIN: He does have IO catheter to his right knee area. He has a central line to his right chest wall area and he has a peripheral line. No cuts, lesions, or bruise. NEUROLOGICAL: Unable to assess. The patient is currently intubated and sedated. LABORATORY RESULTS: His WBC is 14.8, hemoglobin of 9.4, hematocrit of 30.8, his platelets are 362. His chemistry; sodium of 142, potassium of 6.3, BUN of 40, creatinine of 2. His lactic acid initially was 6.5, the current one is 5.2. His troponins were mildly elevated initially at 0.12, went up to 0.3. His EKG indicates a first-degree AV block, however, no ST elevation or depression noted. He did have a CTA to rule out PE, which was negative. However, upon reviewing his CTA, indicates significant large loculated pleural effusion to his right and he also has a right lower lung lobe that is completely collapsed. Also, he had a CT of abdomen and pelvis, brain CT, and a chest x-ray. His CT of abdomen and pelvis indicated that he has a large pleural effusion, possibly blood; also indicated a lesion to his right kidney; also indicated a left adrenal lesion. There was no mention of anything in terms of his bowel. He did have a CT brain, which did not show any acute abnormalities. ASSESSMENT AND PLAN: The patient is a 69-year-old male who presents to the hospital after cardiac arrest. 1. Acute respiratory failure. Unclear if this is most likely from the collapsed lung. He has had multiple collapsed lungs in the past. He underwent a thoracentesis. He is currently intubated. We will go ahead and treat him as prophylactic with IV antibiotics, put him on steroids, put him on breathing treatments. Pulmonology senior data architect has been notified per the ER. 2. Cardiac arrest. He initially had a pulseless electrical activity arrest followed by ventricular fibrillation and was shocked once. I believe this is most likely from his lung pathology. We will get an echocardiogram. His troponin is mildly elevated. EKG, no ST elevation. According to the patient's , he has never had any cardiac history; however, he does have significant risk factors. 3. Hyperkalemia. He has been treated with a hyperkalemia protocol in the ER. We will continue to monitor. 4. Acute kidney injury. Again, we will continue to monitor. His urine output is minimal. We will continue to monitor. 5. Sepsis. Again, he does have lactic acidosis. He does have elevated white count. We will continue broad-spectrum antibiotics. He is currently on 4 pressors. 6. Possible upper GI bleed. The patient had a significant amount of dark maroonish output from his NG tube. We will check H and H, continue to monitor that and also I will type and screen him just in case if we need to transfuse him. I called Latanya Mcfarland at [phone], she is his legal . I did discuss the patient's current condition. She does have paperwork in regard to his wishes. She was very clear that she did not want the patient on life support. However, she stated that she will be here in the morning around 9:00 or 9:30 with his daughter and will bring in the paperwork and then possible comfort measures will be initiated. However, for tonight, she wanted the patient to be monitored and everything to be done for tonight. I will put him as a full code as for now and I did discuss with her if he starts decompensating tonight, we will continue CPR and she was okay with that. Also get palliative care for this patient. Job ID: [id number]
[2019-04-04] MEDS ORDERED: DOPamine 400 MG/D5W 250 ML 250 ML ONE (01:14)
[2019-04-04] MEDS ORDERED: Acetaminophen 1,000 MG in Premix Bag 1 BAG IVPB PRN (01:15)
[2019-04-04] MEDS ORDERED: Vecuronium 10 MG VIAL IV PRN (01:15)
[2019-04-04] MEDS ORDERED: DO NOT USE PRE-EXISTING LYTE PROTOCOL FS SCH (01:15)
[2019-04-04] MEDS ORDERED: Sodium Chloride 0.9% 1,000 ML IV SCH ×2 (01:15→02:00)
[2019-04-04 01:38] LABS: Band 30 % (5-11); Hemoglobin 8.7 g/dL (14.0-18.0); Lymphocytes 4 % (21-51); MDiff Complete? YES; Mean Corpuscular HGB CONC 30.3 g/dL (32.0-36.0); Mean Corpuscular Hemoglobin 26.3 pg (27.0-31.0); Mean Corpuscular Volume 86.8 fL (78.0-98.0); Mean Platelet Volume 7.6 fL (7.4-10.4); Neutrophil 66 % (42-75); Platelet Count 347 thou/uL (130-400); RBC Distribution Width 17.4 % (11.5-14.5); Red Blood Cell (RBC) Count 3.29 mill/uL (4.70-6.10); White Blood Cell (WBC) Count 37.5 thou/uL (4.8-10.8)
[2019-04-04] MEDS: Norepinephrine 8 MG/0.9% NS 250 ML IVPB PRN ×2 (01:49→07:00)
[2019-04-04] MEDS ORDERED: DOPamine 400 MG/D5W 250 ML 250 ML IVPB SCH (02:00)
[2019-04-04] MEDS ORDERED: Piperacillin/Tazobactam 3.375 GM in Sodium Chloride 0.9% 100 ML IVPB SCH ×2 (02:00→11:00)
[2019-04-04] MEDS ORDERED: Pantoprazole 80 MG in Sodium Chloride 0.9% 100 ML IVP SCH (02:00)
[2019-04-04 02:29] LABS: Hemoglobin 9.3 g/dL (14.0-18.0)
[2019-04-04 03:12] LABS: Lactic Acid 4.1 mmol/L (0.5-2.2)
[2019-04-04] MEDS: HumaLOG 300 UNITS/3 ML VIAL SC PRN ×3 (04:12→12:14)
[2019-04-04 04:37] LABS: INR-International Normal Ratio 1.6; PTT 31.5 SEC (22.9-36.1); Prothrombin Time 19.2 SEC (12.0-14.7)
[2019-04-04 04:44] LABS: ALT (SGPT) 398 U/L (8-55); AST (SGOT) 514 U/L (5-34); Albumin 2.1 g/dL (3.4-4.8); Alkaline Phosphatase 249 U/L (40-110); Anion Gap 10 mmol/L (10-20); BUN (Urea Nitrogen) 46 mg/dL (8.4-25.7); Bilirubin, Total 0.5 mg/dL (0.2-1.2); Calc. Creatinine Clearance 57 mL/min (70-130); Calcium 7.5 mg/dL (7.8-10.44); Carbon Dioxide 28 mmol/L (23-31); Chloride 108 mmol/L (98-107); Estimated GFR-MDRD 28; Globulin 3.8 g/dL (2.4-3.5); Glucose 252 mg/dL (80-115); Potassium 4.1 mmol/L (3.5-5.1); Protein, Total 5.9 g/dL (5.8-8.1); Sodium 142 mmol/L (136-145)
[2019-04-04 04:58] LABS: CKMB 114.8 ng/mL (0-6.6)
[2019-04-04 05:16] LABS: CK (CPK) 1336 U/L (30-200); Phosphorus 5.1 mg/dL (2.3-4.7)
[2019-04-04 05:32] LABS: Anisocytosis SLIGHT = 6-15 cells (100X) (0-5/hpf); Band 35 % (5-11); Hemoglobin 9.5 g/dL (14.0-18.0); Lymphocytes 4 % (21-51); MDiff Complete? YES; Mean Corpuscular HGB CONC 30.1 g/dL (32.0-36.0); Mean Corpuscular Hemoglobin 25.9 pg (27.0-31.0); Mean Corpuscular Volume 86.1 fL (78.0-98.0); Mean Platelet Volume 7.8 fL (7.4-10.4); Monocytes 5 % (0-10); Neutrophil 56 % (42-75); Platelet Count 306 thou/uL (130-400); Platelet Morphology Comment Appears Adequate; Polychromasia SLIGHT = 2-3 cells (100X) (0-2/hpf); RBC Distribution Width 17.3 % (11.5-14.5); Red Blood Cell (RBC) Count 3.66 mill/uL (4.70-6.10); White Blood Cell (WBC) Count 38.2 thou/uL (4.8-10.8)
[2019-04-04 07:30] LABS: Actual Bicarbonate (HCO3a) 23.1 mEq/L (22-28); CO2 Tension 45.8 mmHg (35.0-45.0); Calcium, Ionized 1.06 mmol/L (1.12-1.30); Carboxyhemoglobin (COHb) 1.7 gm% (0.0-3.0); Hemoglobin (Hb) 9.4 g/dL (14.0-18.0); O2 Tension (PaO2) 71.9 mmHg (> 80.0); pH, Arterial 7.32 (7.35-7.45)
[2019-04-04 07:34] LABS: Puncture Site LINE
[2019-04-04] MEDS ORDERED: FLU VACC TS2019-20(65YR UP)/PF 180 MCG/0.5 ML SYRINGE IM ONE (09:00)
[2019-04-04] MEDS ORDERED: Prevnar 13-Val Conj/PF 0.5 ML SYRINGE IM ONE (09:00)
[2019-04-04] MEDS ORDERED: Vancomycin HCl 1 GM in Premix Bag 1 BAG IVPB SCH (09:00)
[2019-04-04] MEDS ORDERED: Famotidine/PF 20 mg/2ml Vial SLOW IVP SCH (09:00)
[2019-04-04] MEDS ORDERED: methylPREDNISolone Sod Succ 40 MG VIAL IVP SCH (09:00)
[2019-04-04] MEDS ORDERED: Vancomycin 1.5 GRAM/300 ML BAG 1.5 GM in Premix Bag 1 BAG IVPB SCH (09:00)
[2019-04-04 10:03] LABS: Hemoglobin 8.7 g/dL (14.0-18.0)
[2019-04-04 10:09] LABS: INR-International Normal Ratio 1.6; Prothrombin Time 18.8 SEC (12.0-14.7)
[2019-04-04 10:10] LABS: PTT 33.6 SEC (22.9-36.1)
[2019-04-04 10:13] LABS: Chloride 109 mmol/L (98-107); Sodium 142 mmol/L (136-145)
[2019-04-04 10:14] LABS: Calcium 7.3 mg/dL (7.8-10.44); Glucose 229 mg/dL (80-115)
[2019-04-04 10:16] LABS: Anion Gap 13 mmol/L (10-20); Carbon Dioxide 24 mmol/L (23-31)
[2019-04-04 10:18] LABS: BUN (Urea Nitrogen) 51 mg/dL (8.4-25.7); Calc. Creatinine Clearance 55 mL/min (70-130); Estimated GFR-MDRD 27; Phosphorus 4.6 mg/dL (2.3-4.7)
[2019-04-04 10:20] LABS: CK (CPK) 1300 U/L (30-200)
[2019-04-04 10:26] LABS: Anisocytosis SLIGHT = 6-15 cells (100X) (0-5/hpf); Band 33 % (5-11); Hemoglobin 8.9 g/dL (14.0-18.0); Lymphocytes 4 % (21-51); MDiff Complete? YES; Mean Corpuscular HGB CONC 31.6 g/dL (32.0-36.0); Mean Corpuscular Hemoglobin 26.9 pg (27.0-31.0); Mean Platelet Volume 7.8 fL (7.4-10.4); Monocytes 1 % (0-10); Neutrophil 62 % (42-75); Platelet Count 289 thou/uL (130-400); Polychromasia SLIGHT = 2-3 cells (100X) (0-2/hpf); RBC Distribution Width 17.4 % (11.5-14.5); Red Blood Cell (RBC) Count 3.31 mill/uL (4.70-6.10); White Blood Cell (WBC) Count 34.2 thou/uL (4.8-10.8)
--- NOTE | 2019-04-04 10:49 | RAD ---
PORTABLE CHEST ONE VIEW: 04/04/2019 12:09 a.m. HISTORY: Endotracheal tube placement. Respiratory failure. FINDINGS: The endotracheal tube position is unchanged with the tip at the level of the thoracic inlet. The naso gastric tube has been advanced. The remainder of the exam is stable. POS: [facility]
--- NOTE | 2019-04-04 10:51 | RAD ---
PORTABLE CHEST ONE VIEW: 04/04/2019 2:05 a.m. HISTORY: Respiratory failure. FINDINGS: There has been interval advancement of the endotracheal tube with the tip below the level of the clav icular heads. A right subclavian central line has been placed with the tip in the projection of the S VC. No pneumothoraces are seen. The remainder of the exam is otherwise stable. POS: [facility]
[2019-04-04 11:52] LABS: ALT (SGPT) 328 U/L (8-55); AST (SGOT) 356 U/L (5-34); Albumin 1.9 g/dL (3.4-4.8); Alkaline Phosphatase 202 U/L (40-110); Anion Gap 13 mmol/L (10-20); BUN (Urea Nitrogen) 52 mg/dL (8.4-25.7); Bilirubin, Direct 0.3 mg/dL (0.1-0.3); Bilirubin, Total 0.4 mg/dL (0.2-1.2); Calc. Creatinine Clearance 54 mL/min (70-130); Calcium 7.3 mg/dL (7.8-10.44); Carbon Dioxide 24 mmol/L (23-31); Chloride 109 mmol/L (98-107); Estimated GFR-MDRD 26; Globulin 3.5 g/dL (2.4-3.5); Glucose 227 mg/dL (80-115); Potassium 4.2 mmol/L (3.5-5.1); Protein, Total 5.4 g/dL (5.8-8.1); Sodium 142 mmol/L (136-145)
[2019-04-04 12:52] LABS: Hemoglobin 8.8 g/dL (14.0-18.0)
[2019-04-05 02:09] LABS: CO2 Tension 91.5 mmHg (35.0-45.0)
--- NOTE | 2019-04-07 09:34 | DIS ---
DATE OF ADMISSION: 04/03/2019 DATE OF DISCHARGE: 04/04/2019 DISCHARGE/ NOTE DATE OF EXPIRATION: 04/04/2019. TIME OF : Listed at 1309 hours today. PRIMARY CARE PHYSICIAN: The patient without listed PCP. PRESENTING HISTORY OF PRESENT ILLNESS: A 69-year-old male with past medical history of COPD, on oxygen at home but continues to smoke with noncompliant behavior with hypertension and diabetes, has had collapsed lungs in the past and was brought in by EMS for cardiac arrest. Patient's spouse, Latanya, reported that [facility], had a thoracentesis with 1.5 L removed recently, but continued to feel shortness of breath. Did have his baseline oxygen. The patient apparently coded in the EMS after spouse called for services regarding patient's shortness of breath and confusion. He was found to be in PEA, and CPR was initiated in ambulance. The patient was shocked for VFib. CPR was continued in [place] [facility], where return of circulation was achieved after approximately 2 to 3 rounds of epinephrine and bicarb were subsequently given. The patient was transferred to [facility] for higher level of care to the ICU. Subsequently, given patient's lactic acid levels, suspected sepsis with shock. Broad-spectrum antibiotics were initiated. The patient was intubated, started hypothermia protocol post return of circulation from cardiac arrest. Reviewed abdomen and pelvis CT from initial ER workup. Right pleural effusion still remains, given character possible, some blood from tap noted in pleural fluid. The patient with stable left adrenal lesion on CT scan from prior scans. Brain CT showed no acute intracranial abnormalities. Portable chest x-ray showed endotracheal tube in place, however , it should be advanced. Repeat chest x-ray showed ET tube in appropriate location. Chest CT reviewed, no rib fractures seen despite CPR. Difficult to say if blood in pleural fluid secondary to CPR efforts or thoracentesis [facility] as [facility]. Atelectasis noted with left lower lobe changes. Atelectasis of left upper lobe versus infiltrate noted regarding possible source of sepsis. No signs of embolic present. Despite this resuscitation, the patient's saturations remained low and the patient of course was hypothermic on temperature per protocol, heart rates in the 90s to 100s, blood pressures of 150s average in the early a.m. over 80s. Oxygen saturations did improve with changing ET tube position to 95%, respiratory rate in 20s on ventilator. Review of laboratory work; white blood cell count of 38, hemoglobin of 9.5, and platelet count of 306. INR 1.8. 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 Troponin 6.0, increasing to 9.8. CK of 1300. AST of 350, ALT of 828, calcium of 7.3, glucose 227, creatinine of 2.47, sodium of 142, and potassium of 4.2. Lactic acid 6.5, remained elevated on recheck per sepsis protocol, high was actually 7.2. Urine showed protein and glucose. Pending cultures currently negative at 12 to 24 hours. Upon family members arriving to hospital and being made aware of patient's intubated status with hyperthermia protocol in place, spouse presented signed advanced directive by patient from October of 2017, stating he did not want to be resuscitated and certainly no heroic measures made. He had signed for potential organ donation; however, the patient had a history of cancer and in general, lack of care to his body. Organ Donation team was en route to evaluate patient; however, the patient was not warming up despite cessation of hypothermia protocol. Given this, the patient was not a candidate for organ donation. Family proceeded to go ahead with withdrawal of care. The patient remained unresponsive throughout this warming and withdrawal of care. Nursing staff called the time of at bedside with family members present. Suspected septic shock of unknown source, although CT scan did show possible infiltrate given the fact they had recent thoracentesis with possibly considered HCAP from outside organization leading to cardiac arrest with return to coronary perfusion with subsequent shock to liver; kidney injury, acute; hypercapnic acute respiratory failure; metabolic encephalopathy; and elevated troponins. Can still follow up on culture results. Did not show any signs of collapsed lung following recent procedure. Job ID: [id number] [facility]
== END 2019-04-04 13:09 | disposition expired | DRG 871 ==
LOC: ERS 19:24 → CCU 22:26
PROVIDERS: ADMIT Internal Medicine; ATTEND Internal Medicine
PROC: 5A1935Z Respiratory Ventilation, Less than 24 Consecutive Hours (ICD-10-PCS; principal; 2019-04-03)
PROC: 0BH17EZ Insertion of Endotracheal Airway into Trachea, Via Natural or Artificial Opening (ICD-10-PCS; 2019-04-03)
PROC: 5A12012 Performance of Cardiac Output, Single, Manual (ICD-10-PCS; 2019-04-03)
PROC: 05H533Z Insertion of Infusion Device into Right Subclavian Vein, Percutaneous Approach (ICD-10-PCS; 2019-04-03)
DX: A41.9 Sepsis, unspecified organism (principal); J96.00 Acute respiratory failure, unspecified whether with hypoxia or hypercapnia; R40.2212 Coma scale, best verbal response, none, at arrival to emergency department; R40.2312 Coma scale, best motor response, none, at arrival to emergency department; R40.2112 Coma scale, eyes open, never, at arrival to emergency department; J90 Pleural effusion, not elsewhere classified; N17.9 Acute kidney failure, unspecified; K92.2 Gastrointestinal hemorrhage, unspecified; N40.0 Benign prostatic hyperplasia without lower urinary tract symptoms; I10 Essential (primary) hypertension; E78.5 Hyperlipidemia, unspecified; E66.9 Obesity, unspecified; J44.9 Chronic obstructive pulmonary disease, unspecified; Z90.49 Acquired absence of other specified parts of digestive tract; Z79.4 Long term (current) use of insulin; Z79.899 Other long term (current) drug therapy; E87.5 Hyperkalemia; I46.8 Cardiac arrest due to other underlying condition; E11.9 Type 2 diabetes mellitus without complications; E78.00 Pure hypercholesterolemia, unspecified; Z99.81 Dependence on supplemental oxygen; F17.200 Nicotine dependence, unspecified, uncomplicated
CPT/HCPCS: 31500; 36415; 36416; 36556; 36620; 70450; 71045; 71275; 74177; 81003; 81015; 82330; 82550; 82553; 82803; 82805; 83605; 83690; 83735; 83880; 84100; 84484; 85610; 85730; 86850; 86900; 86901; 87040; 87086; 93005; 94002; 94003; 94640; 96365; 96366; 96368; 96375; 99292; A4217; C9113; J0171; J1265; J1815; J2543; J2920; J2930; J3010; J3370; J3475; J3490; J7070; Q9967